=== PATIENT | male | born 1945 | race Caucasian/White ===

== ENCOUNTER 2017-06-04 14:08 | Day surgery (SDC) | payer OTHER ==
[~2017-06-04] VITALS: Ht 180.3 cm; Wt 82.2 kg
[~2017-06-04 14:08] MED LIST: ATOR10 PO; Aspirin EC81 MG PO; BENAML10/2 PO; CO Q10100 MG PO; ERGO400 PO; FISH OIL 1,2001 EACH PO; LOSA50; MOMENI; Viagra100 MG PO
== END 2017-06-04 16:11 | disposition home or self-care (01) ==
LOC: ORSCSDS 14:08
PROVIDERS: Internal Medicine Gastroenterology
PROC: 0DB58ZX Excision of Esophagus, Via Natural or Artificial Opening Endoscopic, Diagnostic (ICD-10-PCS; principal; 2017-06-04 15:45)
DX: K92.1 Melena (principal); D62 Acute posthemorrhagic anemia; K20.9 Esophagitis, unspecified; K29.70 Gastritis, unspecified, without bleeding; K44.9 Diaphragmatic hernia without obstruction or gangrene; G47.30 Sleep apnea, unspecified; Z79.82 Long term (current) use of aspirin; Z79.899 Other long term (current) drug therapy
CPT/HCPCS: 87081; 88305; 88312; J7120

== ENCOUNTER → 2017-06-17 | Outpatient (CLI) | payer OTHER | LOC: LAB SHORT 11:26 → PLD 11:26 | DX: D04.39 Carcinoma in situ of skin of other parts of face (principal) | CPT/HCPCS: 88305 ==

== ENCOUNTER → 2017-09-29 | Outpatient (CLI) | payer OTHER | END | disposition home or self-care (01) | LOC: LAB SHORT 14:02 → PLD 14:02 | DX: D04.62 Carcinoma in situ of skin of left upper limb, including shoulder (principal); D22.39 Melanocytic nevi of other parts of face | CPT/HCPCS: 88305 ==

== ENCOUNTER → 2019-06-17 | Outpatient (CLI) | payer OTHER | END | disposition home or self-care (01) | LOC: LAB SHORT 11:41 → PLD 11:41 | DX: D04.61 Carcinoma in situ of skin of right upper limb, including shoulder (principal) | CPT/HCPCS: 88305 ==

== ENCOUNTER → 2019-11-23 | Outpatient (CLI) | payer OTHER ==
[2019-11-23 13:31] LABS: BASOPHILS ABSOLUTE AUTO 0.08 K/mm3 (0.00-0.23); BASOPHILS PERCENT AUTO 1 % (0-2); EOSINOPHILS ABSOLUTE AUTO 0.09 K/mm3 (0.00-0.68); EOSINOPHILS PERCENT AUTO 1 % (0-6); Hematocrit 45.8 % (37.0-53.0); Hemoglobin 15.1 g/dL (13.5-17.5); IMMATURE GRAN ABSOLUTE AUTO 0.03 K/mm3 (0.00-0.10); IMMATURE GRAN PERCENT AUTO 0 % (0-1); LYMPHOCYTES ABSOLUTE AUTO 1.05 K/mm3 (0.84-5.20); LYMPHOCYTES PERCENT AUTO 11 % (21-46); MONOCYTES ABSOLUTE AUTO 0.62 K/mm3 (0.16-1.47); MONOCYTES PERCENT AUTO 7 % (4-13); Mean Corpuscular HGB 34.1 pg (26.0-34.0); Mean Corpuscular Volume 103 fL (80-100); Mean Platelet Volume 9.5 fL (9.1-12.4); NEUTROPHILS ABSOLUTE AUTO 7.54 K/mm3 (1.96-9.15); NEUTROPHILS PERCENT AUTO 80 % (41-73); Platelet Count 691 K/mm3 (150-400); RDW Coefficient Variation 13.1 % (11.7-14.2); RDW Standard Deviation 49.4 fL (35.1-46.3); Red Blood Cell Count 4.43 M/mm3 (4.30-5.90); White Blood Cell Count 9.41 K/mm3 (4.00-11.30)
== END | disposition home or self-care (01) ==
LOC: LAB SHORT 12:51 → LAB 12:51
PROVIDERS: Internal Medicine Hematology & Oncology
DX: C94.6 Myelodysplastic disease, not elsewhere classified (principal)
CPT/HCPCS: 85025

== ENCOUNTER → 2020-07-12 | Outpatient (CLI) | payer OTHER ==
[~2020-07-12] MED LIST changes: +HYDURE500; +LISI20; -LOSA50; +LOSA50 PO
== END | disposition home or self-care (01) ==
LOC: LAB SHORT 12:05 → PLD 12:05
DX: D48.5 Neoplasm of uncertain behavior of skin (principal)
CPT/HCPCS: 88305

== ENCOUNTER 2020-11-15 07:43 | Day surgery (SDC) | payer OTHER ==
[~2020-11-15] VITALS: Ht 180.3 cm; Wt 79.0 kg
[~2020-11-15 07:43] MED LIST changes: -HYDURE500; -LISI20
[2020-11-15] MEDS ORDERED: HYDURE500 (08:14)
[2020-11-15] MEDS ORDERED: LISI20 (08:15)
--- NOTE | 2020-11-15 08:29 | NUR ---
11/15/20 0829 Annie Mendoza FIRST ATTEMPT MISSED BY THE MA IN THE RIGHT FOREARM. SECOND ATTEMPTED MISSED BY MA IN THE RIGHT FOREARM. THIRD ATTEMPT SUCCESSFUL IN THE RAC. PT TOW.
--- NOTE | 2020-11-15 09:09 | NUR ---
11/15/20 0909 Johnna Santacruz SIMETHICONE USED DURING PROCEDURE.
== END 2020-11-15 09:43 | disposition home or self-care (01) ==
LOC: ORSCSDS 07:43
PROVIDERS: Internal Medicine Gastroenterology
PROC: 0DJD8ZZ Inspection of Lower Intestinal Tract, Via Natural or Artificial Opening Endoscopic (ICD-10-PCS; principal; 2020-11-15 09:00)
DX: Z12.11 Encounter for screening for malignant neoplasm of colon (principal); Z86.010 Personal history of colon polyps; K57.30 Diverticulosis of large intestine without perforation or abscess without bleeding; K64.8 Other hemorrhoids; Z79.82 Long term (current) use of aspirin; Z79.899 Other long term (current) drug therapy
CPT/HCPCS: J0330; J0461; J2405; J2704; J7040; J7120

== ENCOUNTER → 2021-01-08 | Outpatient (CLI) | payer OTHER ==
[~2021-01-08] MED LIST changes: +HYDURE500; +LISI20
== END | disposition home or self-care (01) ==
LOC: LAB 15:08 → LAB SHORT 15:08
DX: D48.5 Neoplasm of uncertain behavior of skin (principal)
CPT/HCPCS: 88305

== ENCOUNTER → 2021-06-04 | Outpatient (CLI) | payer OTHER ==
[2021-06-04 14:02] LABS: BASOPHILS ABSOLUTE AUTO 0.08 K/mm3 (0.00-0.23); BASOPHILS PERCENT AUTO 1 % (0-2); EOSINOPHILS ABSOLUTE AUTO 0.08 K/mm3 (0.00-0.68); EOSINOPHILS PERCENT AUTO 1 % (0-6); Hematocrit 45.1 % (37.0-53.0); Hemoglobin 15.1 g/dL (13.5-17.5); IMMATURE GRAN ABSOLUTE AUTO 0.02 K/mm3 (0.00-0.10); IMMATURE GRAN PERCENT AUTO 0 % (0-1); LYMPHOCYTES ABSOLUTE AUTO 1.68 K/mm3 (0.84-5.20); LYMPHOCYTES PERCENT AUTO 24 % (21-46); MONOCYTES ABSOLUTE AUTO 0.59 K/mm3 (0.16-1.47); MONOCYTES PERCENT AUTO 8 % (4-13); Mean Corpuscular HGB Conc 33.5 g/dL (31.5-36.5); Mean Corpuscular Volume 107 fL (80-100); Mean Platelet Volume 10.2 fL (9.1-12.4); NEUTROPHILS ABSOLUTE AUTO 4.54 K/mm3 (1.96-9.15); NEUTROPHILS PERCENT AUTO 65 % (41-73); Platelet Count 530 K/mm3 (150-400); RDW Coefficient Variation 13.3 % (11.7-14.2); RDW Standard Deviation 52.9 fL (35.1-46.3); White Blood Cell Count 6.99 K/mm3 (4.00-11.30)
== END | disposition home or self-care (01) ==
LOC: LAB SHORT 10:25
PROVIDERS: Internal Medicine Hematology & Oncology
DX: D47.3 Essential (hemorrhagic) thrombocythemia (principal)
CPT/HCPCS: 85025

== ENCOUNTER 2023-11-12 12:23 | Day surgery (SDC) | payer OTHER ==
[~2023-11-12] VITALS: Ht 180.3 cm; Wt 79.3 kg
[~2023-11-12 12:23] MED LIST changes: +Balanced Salt Epinephrine Irrigation Solution 500 mL IR SCH; +CLOP75 PO; +Lidocaine HCl/Pf 1% 5 ML VIAL XX SCH; +METO25 PO; +Moxifloxacin HCL 0.5 MG/0.1 ML 0.4MLSYR RIGHTEYE SCH; +NS 500 ML IV ONE; +OMEP20ER PO; +PANT20 PO; +PHENYLEPHRINE\\TROPICAMIDE\\TETRACAINE OPHTHALMIC DILATING SOLN RIGHTEYE PRN; +Povidone-Iodine 450 DROP/30 ML Solution RIGHTEYE SCH; +UBID100 PO
[2023-11-12] MEDS ORDERED: Tambocor100 MG PO (13:07)
--- NOTE | 2023-11-12 13:10 | NUR ---
11/12/23 1310 Lili Stahl AT 1307 PLEDGET AT 1310
[2023-11-12] MEDS ORDERED: NS 500 ML IV ONE (13:20)
[2023-11-12] MEDS ORDERED: FentaNYL Citrate 50 MCG/ML 2 ML Injection ONE (13:35)
[2023-11-12] MEDS ORDERED: Midazolam HCl 1MG / ML 2ML Vial ONE (13:35)
[2023-11-12] MEDS ORDERED: Tetracaine HCl 0.5% Opth Soln 15 ml RIGHTEYE ONE (13:54)
[2023-11-12 14:44] VITALS: BP 143/84
== END 2023-11-12 14:50 | disposition home or self-care (01) ==
LOC: ORSCSDS 12:23
PROVIDERS: Student in an Organized Health Care Education/Training Program
PROC: 08RJ3JZ Replacement of Right Lens with Synthetic Substitute, Percutaneous Approach (ICD-10-PCS; principal; 2023-11-12 13:30)
DX: H25.813 Combined forms of age-related cataract, bilateral (principal); H52.201 Unspecified astigmatism, right eye; I10 Essential (primary) hypertension; I25.10 Atherosclerotic heart disease of native coronary artery without angina pectoris; G47.33 Obstructive sleep apnea (adult) (pediatric); K21.9 Gastro-esophageal reflux disease without esophagitis; Z79.899 Other long term (current) drug therapy; Z79.82 Long term (current) use of aspirin
CPT/HCPCS: J2250; J3010; J7040; V2632

== ENCOUNTER 2023-11-18 10:16 | Day surgery (SDC) | payer OTHER ==
[~2023-11-18] VITALS: Ht 180.3 cm; Wt 79.2 kg
[~2023-11-18 10:16] MED LIST changes: +Moxifloxacin HCL 0.5 MG/0.1 ML 0.4MLSYR LEFTEYE SCH; -Moxifloxacin HCL 0.5 MG/0.1 ML 0.4MLSYR RIGHTEYE SCH; +PHENYLEPHRINE\\TROPICAMIDE\\TETRACAINE OPHTHALMIC DILATING SOLN LEFTEYE PRN; -PHENYLEPHRINE\\TROPICAMIDE\\TETRACAINE OPHTHALMIC DILATING SOLN RIGHTEYE PRN; +Povidone-Iodine 450 DROP/30 ML Solution LEFTEYE SCH; -Povidone-Iodine 450 DROP/30 ML Solution RIGHTEYE SCH; +Tambocor100 MG PO
[2023-11-18] MEDS ORDERED: NS 1,000 ML IV ONE (10:43)
[2023-11-18] MEDS ORDERED: Tetracaine HCl 0.5% Opth Soln 15 ml LEFTEYE ONE (11:12)
[2023-11-18] MEDS ORDERED: FentaNYL Citrate 50 MCG/ML 2 ML Injection ONE (11:19)
[2023-11-18 11:37] VITALS: BP 112/78
== END 2023-11-18 11:47 | disposition home or self-care (01) ==
LOC: ORSCSDS 10:16
PROVIDERS: Student in an Organized Health Care Education/Training Program
PROC: 08RK3JZ Replacement of Left Lens with Synthetic Substitute, Percutaneous Approach (ICD-10-PCS; principal; 2023-11-18 11:30)
DX: H25.812 Combined forms of age-related cataract, left eye (principal); H21.81 Floppy iris syndrome; Z96.1 Presence of intraocular lens; I10 Essential (primary) hypertension; D75.839 Thrombocytosis, unspecified; K21.9 Gastro-esophageal reflux disease without esophagitis; Z79.82 Long term (current) use of aspirin; Z79.899 Other long term (current) drug therapy
CPT/HCPCS: J3010; J7040; V2632

== ENCOUNTER 2025-01-18 10:29 | Emergency (ER) | payer OTHER ==
[~2025-01-18] VITALS: Ht 180.3 cm; Wt 72.6 kg
[~2025-01-18 10:29] MED LIST changes: +ACET325 PO; -Balanced Salt Epinephrine Irrigation Solution 500 mL IR SCH; +LEVAQUIN750 MG PO; -LISI20; +LISI20 PO; -Lidocaine HCl/Pf 1% 5 ML VIAL XX SCH; -Moxifloxacin HCL 0.5 MG/0.1 ML 0.4MLSYR LEFTEYE SCH; -NS 500 ML IV ONE; -PHENYLEPHRINE\\TROPICAMIDE\\TETRACAINE OPHTHALMIC DILATING SOLN LEFTEYE PRN; -Povidone-Iodine 450 DROP/30 ML Solution LEFTEYE SCH; +TAMS.4ER PO; +VISBIOME 112.51 EACH PO
[2025-01-18 11:18] LABS: BASOPHILS ABSOLUTE AUTO 0.02 K/mm3 (0.00-0.23); BASOPHILS PERCENT AUTO 1 % (0-2); EOSINOPHILS ABSOLUTE AUTO 0.01 K/mm3 (0.00-0.68); EOSINOPHILS PERCENT AUTO 0 % (0-6); Hematocrit 24.4 % (37.0-53.0); Hemoglobin 8.7 g/dL (13.5-17.5); IMMATURE GRAN ABSOLUTE AUTO 0.00 K/mm3 (0.00-0.10); IMMATURE GRAN PERCENT AUTO 0 % (0-1); LYMPHOCYTES ABSOLUTE AUTO 0.98 K/mm3 (0.84-5.20); LYMPHOCYTES PERCENT AUTO 40 % (21-46); MONOCYTES ABSOLUTE AUTO 0.22 K/mm3 (0.16-1.47); MONOCYTES PERCENT AUTO 9 % (4-13); Mean Corpuscular HGB Conc 35.7 g/dL (31.5-36.5); Mean Corpuscular Volume 102 fL (80-100); NEUTROPHILS ABSOLUTE AUTO 1.23 K/mm3 (1.96-9.15); NEUTROPHILS PERCENT AUTO 50 % (41-73); NRBC ABSOLUTE 0.00 K/mm3 (0.00-0.02); NRBC Auto 0.0 /100 WBC (0.0-0.2); Platelet Count 237 K/mm3 (150-400); RDW Coefficient Variation 13.4 % (11.7-14.2); RDW Standard Deviation 49.0 fL (35.1-46.3)
[2025-01-18 11:59] LABS: Alanine Aminotransfer (ALT/SGP 30.0 U/L (12-78); Albumin, Blood 3.2 g/dL (3.4-5.0); Albumin/Globulin Ratio 0.6 (0.8-1.8); Anion Gap 10.0 mmol/L (3-11); Aspartate Aminotrans (AST/SGOT 23.0 U/L (12-37); Bilirubin, Total 0.9 mg/dL (0.1-1.0); Blood Urea Nitrogen 23.0 mg/dL (8-24); CO2, Blood 26.0 mmol/L (21-32); Calcium, Blood 8.7 mg/dL (8.5-10.1); Chloride, Blood 94.0 mmol/L (98-108); Creatinine, Blood 1.06 mg/dL (0.60-1.20); Globulin, Blood 5.0 g/dL (2.2-4.0); Glucose, Blood 116.0 mg/dL (70-99); Potassium, Blood 4.0 mmol/L (3.5-5.5); Sodium, Blood 126.0 mmol/L (136-145); Thyroid Stimulating Hormone 1.74 uIU/mL (0.360-4.800); Total Protein, Blood 8.2 g/dL (6.4-8.2)
[2025-01-18 12:30] VITALS: BP 142/57
== END 2025-01-18 12:47 | disposition home or self-care (01) ==
LOC: ER 10:29
PROVIDERS: Physician Assistant
DX: R00.0 Tachycardia, unspecified (principal); R55 Syncope and collapse; I25.10 Atherosclerotic heart disease of native coronary artery without angina pectoris; Z79.899 Other long term (current) drug therapy
CPT/HCPCS: 71046; 80053; 84443; 84484; 85025; 93005; 93010; 99284-25